=== PATIENT | male | born 1955 | race Caucasian/White ===

== ENCOUNTER 2017-05-13 06:19 | Emergency (ER) | payer BC ==
[~2017-05-13] VITALS: Ht 185.4 cm; Wt 93.1 kg
[~2017-05-13 06:19] MED LIST: ALLEGRA ALLERG180 MG PO; ALLEGRA180 MG PO; ALPRAZOLAM0.5 MG PO; ATORVASTATIN CA40 MG PO; Aspirin E.C. PO; Augmentin PO; CLARITIN10 M3 PO; COLACE100 MG PO; COQ-10100 MG PO; COUMADIN2.5 MG PO; CYANOCOBALAM1000 MCG PO; ENDOCET 5-3251 EACH PO; GABAPENTIN600 MG PO; LISINOPRIL5 MG PO; Lipitor PO; MIRTAZAPINE15 MG PO; MIRTAZAPINE30 MG PO; PANTOPRAZOLE SO40 MG PO; PERCOCET 5/31 TABLET PO; PLAVIX75 MG PO; PRAVACHOL10 MG PO; PRAVASTATIN SOD10 MG PO; PROAIR HFA8.5 GM IH; PROTONIX40 MG PO; ROXICODONE5 MG PO; SPIRIVA RESPIMAT4 G1 IH; WARFARIN SODIU2.5 MG PO; XANAX0.5 MG; XARELTO15 MG PO; XARELTO20 MG PO
[2017-05-13 06:40] LABS: HEMATOCRIT 47.4 % (38.0-50.0); MCH 31.6 PG (29.0-34.0); MCHC 32.5 G/DL (30.0-36.0); MCV 97.1 FL (86-99); MEAN PLAT.VOLUME 9.7 uM^3 (9.0-12.4); PLATELET COUNT 287 K/uL (156-360); RBC DIS.WIDTH-CV 12.7 % (11.8-14.6); RBC DIS.WIDTH-SD 45.4 % (39-53); RED BLOOD COUNT 4.88 M/uL (4.00-5.50); WHITE BLOOD COUNT 10.4 K/uL (4.1-10.2)
[2017-05-13 06:59] LABS: CHLORIDE 101 mEq/L (99-109); SODIUM 140 mEq/L (136-147)
[2017-05-13 07:00] LABS: TROP-I INTERPRETATION NEGATIVE; TROPONIN-I < 0.01 ng/mL (0.0-0.30)
[2017-05-13 07:01] LABS: GLUCOSE 94 mg/dL (70-99)
[2017-05-13 07:02] LABS: ANION GAP 12 MEQ/L (2-14)
[2017-05-13 07:05] LABS: GFR ESTIMATE (CALCULATED) > 59 mL/min/; UREA NITROGEN (BUN) 8 mg/dL (9-23)
[2017-05-13 10:00] LABS: ADD MIUA? NO; BILIRUBIN NEGATIVE; BLOOD NEGATIVE; COLOR YELLOW ((YELLOW)); GLUCOSE (STRIP) NEGATIVE; KETONES NEGATIVE; LEUKOCYTES NEGATIVE; NITRITE NEGATIVE; PROTEIN (STRIP) NEGATIVE; SPECIFIC GRAVITY 1.029 (1.000-1.030); UCUL ADDED? NO; UROBILINOGEN 0.2 MG/DL (0.2-1.0)
[2017-05-13] MEDS ORDERED: LEVAQUIN750 MG PO (10:09)
[2017-05-13] MEDS ORDERED: FLAGYL500 MG PO (10:09)
[2017-05-13 10:51] VITALS: BP 132/86
== END 2017-05-13 10:57 | disposition home or self-care (01) ==
LOC: EME 06:19
PROVIDERS: Emergency Medicine
DX: K52.9 Noninfective gastroenteritis and colitis, unspecified (principal); J44.0 Chronic obstructive pulmonary disease with (acute) lower respiratory infection; J18.9 Pneumonia, unspecified organism; Z86.711 Personal history of pulmonary embolism; Z79.01 Long term (current) use of anticoagulants; K21.9 Gastro-esophageal reflux disease without esophagitis; I10 Essential (primary) hypertension; E78.5 Hyperlipidemia, unspecified; F41.9 Anxiety disorder, unspecified; F32.9 Major depressive disorder, single episode, unspecified; Z86.73 Personal history of transient ischemic attack (TIA), and cerebral infarction without residual deficits; F17.200 Nicotine dependence, unspecified, uncomplicated
CPT/HCPCS: 71020; 74177; 80048; 81003; 84484; 85027; 93005; 99281; 99285; J2270; J7030